=== PATIENT | male | born 1990 | race Caucasian/White ===

== ENCOUNTER 2022-05-28 20:57 | Outpatient (REF) | payer BC, SELFPAY ==
[2022-05-30 12:33] LABS: COVID-19 RT-PCR UVMMC Result Negative (Negative)
== END 2022-05-28 20:58 | disposition home or self-care (01) ==
LOC: LBN 20:57
PROVIDERS: PCP Internal Medicine; Visit Provider Physician Assistant Medical
DX: Z20.822 Contact with and (suspected) exposure to COVID-19 (principal)
CPT/HCPCS: U0003

== ENCOUNTER 2024-10-24 21:57 | Outpatient (REF) | payer BC, SELFPAY | END 2024-10-24 21:58 | disposition home or self-care (01) | LOC: LBN 21:57 | PROVIDERS: Visit Provider Physician Assistant Medical | DX: Z20.818 Contact with and (suspected) exposure to other bacterial communicable diseases (principal) | CPT/HCPCS: 87070 ==